=== PATIENT | female | born 1980 | race Caucasian/White ===

== ENCOUNTER 2016-08-03 04:10 | Emergency (ER) | payer SELFPAY ==
[~2016-08-03 04:10] MED LIST: ONDA4TAB10 PO
--- NOTE | 2016-08-03 04:21 | PHYS DOC ---
General Chief Complaint: NAUSEA/VOMITING/DIARRHEA Stated Complaint: CHEST PAIN Time Seen by MD: 04:16 Source: patient, EMS Problems: History of Present Illness Initial Comments Patient here by EMS with multiple complaints, including arm infection, UTI, chest pain, vomiting, and left leg pain. As best I understand the story from EMS , the patient's been seen at [facility] 3 times over the last 3 days and his been discharge in each occasion. She barely [facility] because of her multiple complaints. She had she stated to EMS that she called EMS because she had no other ride, and she did want to go back to [facility] because she felt that they had not taking care of her problem. As best I can a similar story for the patient, she initially went [facility] several days ago for what she describes as some kind of infection in the left arm. She said she was not given antibiotics for this but only be given some pain medicine. She apparently then went back to [facility] at some point was diagnosed with UTI, will she got a prescription for antibiotic she said that she never got it filled. She then went back to [facility] today for nausea vomiting and apparently was discharged back home. The patient says she went home and continue to vomit. She is now here because she says the vomiting is actually worse. She says she started 9 or 10 times today without blood or bilious material. She's had no fever or chills. There is no runny nose or sore throat. She says she has chest pain which she attributes to reflux that she has an from vomiting. She has no shortness of breath. She does have some upper abdominal pain as well. There is no change in bowel or bladder habits. She is also complaining of some left medial knee pain which just started tonight. She notes no history of injury or trauma, there is no distal motor sensory or vascular complaints, and she has been able to be up and ambulatory on the leg without difficulty. When asked out of these multiple complaints, if we had to focus on one thing that brought her to the ER [facility], but without B, she says the left leg pain and not multiple other complaints. Other than being seen at [facility] multiple occasions the last several days he's been nothing done for this home and no fractures noted increase or decrease any symptoms she might have. Patient's past medically according to her is remarkable for reflux and for diabetes. She says she claims compliance with her diabetic medications. She says her sugar at home was over 400 today. She says she's run out of her reflux meds. She is a nonsmoker and nonuser of ethanol. Allergies: Coded Allergies: sulfamethoxazole (Verified Allergy, Intermediate, RASH, 12/07/15) trimethoprim (Verified Allergy, Intermediate, RASH, 12/07/15) Past Medical History Medical History: diabetes, GERD Social History Smoker: non-smoker Alcohol: none Review of Systems All Other Systems: Reviewed and Negative Physical Exam General Appearance: WD/WN, no apparent distress Ear, Nose, Throat: normal ENT inspection, normal pharynx Neck: full range of motion, supple, normal inspection Respiratory: lungs clear, normal breath sounds, no respiratory distress Cardiovascular: regular rate, rhythm, no edema Gastrointestinal: non tender, soft, no organomegaly Back: no CVA tenderness, no vertebral tenderness Extremities: normal inspection, other 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 Her subjective complaints of pain and nausea significant way outweigh the the objective lack of signs of discomfort distress. Vitals are as noted. Pertinent findings on physical exam shows ears and throat are grossly clear. Neck is supple without adenopathy or JVD. There's no meningeal signs. Chest clear to auscultation bilaterally. Cardiac vascular exam shows regular rate and rhythm without murmur. The abdomen is soft and fully nontender without masses or organomegaly. There is no perineal findings. Back shows no CVA tenderness. Externally show no rashes, cyanosis, or edema. The patient claims tenderness over the medial aspect of the left knee. There is no signs of trauma, no swelling, no bruising, no deformity. The knee is stable in all planes. There are no distal left lower extremity motor, sensory, vascular deficits appreciated. There is no redness, cords, asymmetry, or signs of DVT. She is awake alert oriented and cooperative. Remainder of physical exam is quickly unremarkable. Orders, Labs, Meds Old charts note to prior ER visits last year for hyperglycemia and left knee pain. We were able to obtain information from [facility]. Patient was seen at that facility on the of the month complaining of left arm and right leg pain. She was diagnosed with left arm pain, probably secondary to phlebitis, as well as right leg pain with uncertain diagnosis. The patient was seen on the of the forearm pain which is noted to be in the left arm and a previous IV site in the forearm. She also said she had a fall at that time. She was evaluated with an unremarkable x-ray and was treated for phlebitis. There is noted the patient was apparently admitted to the hospital at some point and left AMA because she said she was getting her insulin or any food. Patient appears to have been seen on the of month for wound on her left inner thigh with a history of MRSA an incision and drainage in the same location. She was noted to have a by 2 cm area of early cellulitis with induration. She was given a dose of vancomycin as well as morphine. She appears to been diagnosed with cellulitis as well as hyperglycemia and given prescriptions for [place] and Cleocin. There is a note on the fact sheet that she was apparently admitted to the hospital at some point between the and the of this month but left AMA. X-rays the left knee show some old calcifications and possible old injury, but no acute changes are noted per the emergency physician. 0540 Patient has been resting comfortably in the ER. I went to discuss with the patient the benign nature of her knee issues. She's had no further vomiting in the ED and was able to drink fluids without difficulty. She's complaining of headache and be given Tylenol for this. I discussed with her and the male friend with her now that in terms of her acute complaint, I didn't think there is anything new or different about her knee today. Does look like she has some old injury calcifications. They asked for some sort of knee brace than happy to provide him with an Ranjith wrap for her knee. The patient stated that she wanted something to use at home for her reflux. After discussion, we think the medicine she was on was dicyclomine, and I indicated I would be happy to give her tablet here and write a prescription for home as well. The patient and her male friend and wanted to know if we would give them a ride home. She barely was brought here by ambulance, and he had a friend drive him here but isn't sure the Jonny and take him home. I indicated I would refer them to nursing he knows these things better than I. Did encourage her, that even though her right leg cellulitis appears to be much improved, that she continued to get her antibiotics filled as prescribed. Also provided reassurance that her phlebitis in her left forearm appears to be stable and will probably continue to improve without further care. As we are making arrangements to discharge the patient, she then began vomiting again. There is some question about whether this vomiting was self-induced. However, given that she is now vomiting we'll need to keep her here for some further evaluation. I'll start an IV and get some appropriate labs and x-rays. I do wonder if the timing of the vomiting, immediately after we are referring discharge paperwork, and given her overall recent pattern it ER use I do wonder if there is some supratentorial gain associated with this evening's presentation. The patient is likely be checked out to the oncoming emergency physician to follow-up. FRANKLIN ARIAS MD Aug 03, 2016 04:21
[2016-08-03 04:30] VITALS: BP 128/96
[2016-08-03] MEDS ORDERED: LIDO:MAALOX 1:1 20 ML SINGLE DOSE PO ONE (05:00)
[2016-08-03] MEDS ORDERED: ACETAMINOPHEN 500 MG TABLET PO ONE ×2 (05:21→06:00)
[2016-08-03] MEDS ORDERED: IV NORMAL SALINE 1,000ML 1,000 ML IV ONE (06:00)
[2016-08-03] MEDS ORDERED: ONDANSETRON PF 4 MG/2 ML VIAL. IV ONE (06:00)
[2016-08-03] MEDS ORDERED: CIPROFLOXACIN HCL 500 MG TABLET PO ONE (07:00)
--- NOTE | 2016-08-03 09:05 | RAD ---
KNEE LEFT 4V Clinical Indication: Severe left anterior knee pain, fall 5 days ago, pain persists Comparison: None. Technique: Frontal, oblique, lateral and sunrise views of the left knee are obtained. Findings: No acute fracture or dislocation is seen. Chondrocalcinosis is present throughout the joint. Mild degenerative changes are present with osteophytes without significant joint space narrowing. No significant joint effusion is seen. Overlying soft tissues demonstrate no acute finding. IMPRESSION: No acute osseous injury. Chronic findings detailed above.
--- NOTE | 2016-08-03 09:12 | RAD ---
ABDOMEN SUPINE UPRIGHT Clinical Indication: Nausea, vomiting, abdomen pain today Comparison: None. Technique: Upright and supine views of the abdomen are obtained. Findings: No intra-abdominal free air or air-fluid levels are seen on the upright view. No dilated bowel loops are seen to suggest obstruction. Formed fecal material is seen in the colon. No definite renal calculi are seen, although bowel gas overlies the renal fossa. Osseous structures and overlying soft tissues demonstrate no acute finding. Visualized lower lungs appear clear. IMPRESSION: Nonobstructive appearing bowel gas pattern.
== END 2016-08-03 06:59 | disposition home or self-care (01) ==
LOC: ER 04:10
DX: R07.9 Chest pain, unspecified (principal); M79.605 Pain in left leg; E11.9 Type 2 diabetes mellitus without complications; K21.9 Gastro-esophageal reflux disease without esophagitis; R10.10 Upper abdominal pain, unspecified; R51 Headache; R11.10 Vomiting, unspecified; Z88.1 Allergy status to other antibiotic agents
CPT/HCPCS: 73564; 74020; 82947; 96361; 96374; 99285; J2405; J7030